=== PATIENT | female | born 1950 | race Caucasian/White ===

== ENCOUNTER 2017-03-02 19:57 | Emergency (ER) | payer MEDICARE, MEDICAID ==
[~2017-03-02] VITALS: Ht 162.6 cm; Wt 77.0 kg
[2017-03-02] MEDS ORDERED: IBUPROFEN 600MG TABLET PO ONE (22:30)
[2017-03-03 02:51] VITALS: BP 136/67
== END 2017-03-03 02:55 | disposition home or self-care (01) ==
LOC: ER 20:42
DX: S39.012A Strain of muscle, fascia and tendon of lower back, initial encounter (principal); S16.1XXA Strain of muscle, fascia and tendon at neck level, initial encounter; V43.62XA Car passenger injured in collision with other type car in traffic accident, initial encounter; Y93.89 Activity, other specified; Y92.488 Other paved roadways as the place of occurrence of the external cause
CPT/HCPCS: 71010; 72040; 72100; 72125; 99284